=== PATIENT | female | born 1960 | race Two or more races ===

== ENCOUNTER 2021-04-28 10:07 | Outpatient (CLI) | payer OTHER ==
[~2021-04-28 10:07] MED LIST: AROMASIN25 MG PO
== END 2021-04-28 11:48 | disposition home or self-care (01) ==
LOC: NUCLEAR 10:07
PROVIDERS: ATTEND Internal Medicine Cardiovascular Disease
DX: I10 Essential (primary) hypertension (principal); I50.1 Left ventricular failure, unspecified